=== PATIENT | female | born 1950 | race Caucasian/White ===

== ENCOUNTER → 2017-02-09 | Outpatient (CLI) | payer OTHER ==
--- NOTE | 2017-02-10 09:33 | REP ---
Clinical: Bronchiectasis. Technique: Axial noncontrast images from the thoracic inlet to the upper abdomen with coronal and sagittal re-formations. Comparison: 07/14/2013. Findings: Moderate to early-advanced diffuse bilateral bronchiectasis is appreciated along with scattered distal areas of bronchial opacity suggesting chronic aspiration and surrounding areas of tree-in-bud type infiltrates. These findings are similar to prior examination. No focal consolidation, significant mass lesion, pleural effusion/reaction or pneumothorax appreciated. No obvious adenopathy. Mediastinum demonstrates normal thoracic aorta and heart/pericardium without aortic aneurysm or cardiomegaly. No pericardial effusion. Left renal hypodensities remain stable and compatible with cysts. Impression: Moderate to early advanced chronic bronchiectasis with small scattered areas of chronic aspiration and surrounding tree-in-bud type infiltrates which remain relatively similar to prior examination. Few small scattered nodular densities on prior examination of 2013 have resolved, and no new significant consolidation, nodule or mass lesion is identified. Signed by Cecil Ramsay MD 02/10/2017 09:24 A
== END ==
LOC: M RAD 14:33
PROVIDERS: ATTEND Internal Medicine Pulmonary Disease
DX: J47.9 Bronchiectasis, uncomplicated (principal)

== ENCOUNTER → 2019-02-28 | Outpatient (CLI) | payer OTHER, MEDICAID ==
--- NOTE | 2019-03-01 06:30 | REP ---
Clinical: Renal cyst. Comparison: 02/17/2017. Technique: Real time lorenzo scale ultrasound examination using curved array transducer. Findings: Right kidney is normal in reniform shape and measures 8.9 x 4.1 x 3.0 cm in width 4 mm cortical cyst. No hydronephrosis, nephrolithiasis, further cystic or mass lesion appreciated. Left kidney is normal in reniform shape and measures 9.3 x 3.5 x 5.2 cm including complex upper pole cyst measuring 2.2 cm and peripelvic cyst measuring 1.1 cm along with smaller subcentimeter cysts. No hydronephrosis, nephrolithiasis, or mass lesion appreciated. Impression: Few cysts as noted above appear stable compared to 2017 . Electronically Signed by Cecil Ramsay MD 03/01/2019 06:22 A
== END ==
LOC: M RAD 08:20
PROVIDERS: ATTEND Nurse Practitioner Women's Health
DX: N28.1 Cyst of kidney, acquired (principal)

== ENCOUNTER → 2020-03-29 | Outpatient (CLI) | payer OTHER, MEDICAID ==
--- NOTE | 2020-03-29 14:53 | REP ---
INDICATION: RENAL CYST. COMPARISON: 02/28/2019, 02/17/2017, and 01/28/2015. FINDINGS: Multiple ultrasonographic images of the right kidney show the right kidney to measure 8.7 x 4.2 x 4.2 cm. The renal cortical echotexture is unremarkable. There are no masses. There is an unchanged 4 mm sized cyst in the inferior pole. There is good corticomedullary differentiation. There is no hydronephrosis. There are no perinephric fluid collections. Multiple ultrasonographic images of the left kidney show the left kidney to measure 9.3 x 4.1 x 4.3 cm . The renal cortical echotexture is unremarkable. There are no masses. There are unchanged cysts the largest measures 2.3 cm and the smaller of the 2 measures 1.3 cm. There is good corticomedullary differentiation. There is no hydronephrosis. There are no perinephric fluid collections. IMPRESSION: Stable exam <Electronically signed by Ector Calvillo > 03/29/20 [id number]
== END ==
LOC: M RAD 12:58
PROVIDERS: ATTEND Nurse Practitioner Women's Health
DX: N28.1 Cyst of kidney, acquired (principal)

== ENCOUNTER → 2020-12-25 | Outpatient (REF) | payer OTHER, MEDICAID ==
[2020-12-25 13:45] LABS: APPEARANCE, URINE CLOUDY (CLEAR); BACTERIA, URINE AUTO 1+ (NEGATIVE); BILIRUBIN, URINE AUTO NEGATIVE (NEGATIVE); BLOOD, URINE BLOOD 1+ (NEGATIVE); COLOR, URINE YELLOW (YELLOW); GLUCOSE, URINE (UA) AUTO NEGATIVE (NEGATIVE); KETONE, URINE AUTO NEGATIVE (NEGATIVE); LEUKOCYTE ESTERASE, URINE AUTO 3+ (NEGATIVE); MUCUS, URINE SMALL (NEGATIVE); NITRITE, URINE AUTO NEGATIVE (NEGATIVE); PROTEIN, URINE AUTO 1+ mg/dL (NEGATIVE); RBC, URINE AUTO 22 /HPF (0-3); SPECIFIC GRAVITY URINE AUTO 1.018 (1.002-1.035); SQUAMOUS EPITHELIAL CELL UR AU 0 /HPF (0-6); UROBILINOGEN, URINE AUTO 0.2 mg/dL (0.0-2.0); WBC, URINE AUTO TNTC /HPF (0-3)
== END ==
LOC: M SMT 12:59
PROVIDERS: ATTEND Nurse Practitioner Women's Health
DX: R31.0 Gross hematuria (principal)
CPT/HCPCS: 81001; 87088; 87186; G0463

== ENCOUNTER → 2021-01-06 | Outpatient (CLI) | payer OTHER, MEDICAID ==
[~2021-01-06] MED LIST: ISOVUE-370 76% 100ML VIAL As Ordered ONE
--- NOTE | 2021-01-08 04:41 | REP ---
INDICATION: GROSS HEMATURIA. COMPARISON: None TECHNIQUE: Axial precontrast, contrast-enhanced and delayed images from the lung bases to the pubic symphysis using 100 cc Isovue 370 intravenous contrast material. Coronal and sagittal reformations obtained. Post processing performed the creation of 3D CT urogram. This CT examination was performed using the following dose reduction techniques: Automated exposure control, adjustment of mA and/or kv according to the patient's size, and the use of iterative reconstruction technique. FINDINGS: Liver, spleen, pancreas, gallbladder, and bilateral adrenal glands are normal. Evaluation of the urinary tract system demonstrates relatively normal kidneys and collecting system. There is no evidence for nephroureterolithiasis, hydronephrosis or perinephric stranding. Few scattered incidental subcentimeter cysts are noted along with 2 benign cysts in the left kidney measuring 2.1 and 1.5 cm each. The enteric system including stomach, small, and large bowel appears normal. No evidence for obstruction or acute inflammatory process. Scattered diverticula noted without acute diverticulitis. Pelvis demonstrates normal bladder and evidence for prior hysterectomy. No ascites. No free air. No intraperitoneal or retroperitoneal adenopathy. Abdominal aorta and vasculature appear normal. Musculoskeletal structures are intact and without acute osseous abnormality. Lung bases demonstrate chronic bronchiectasis with presumed chronic mucous plugging to multiple bronchi in the visualized right middle lobe and lingula as well as scattered small reticulonodular/ "tree in bud" opacities scattered throughout the visualized lower lung zones which may represent chronic change versus an acute inflammatory process. IMPRESSION: 1. Few benign renal cysts as noted above. No further urinary tract pathology appreciated. 2. Predominately chronic appearing changes at the lung bases. Subtle superimposed acute process cannot be excluded and should be correlated clinically. No consolidation or effusion. 3. No further acute abdominopelvic pathology appreciated. <Electronically signed by Cecil Ramsay > 01/08/21 [id number]
== END ==
LOC: M RAD 15:07
PROVIDERS: ATTEND Nurse Practitioner Women's Health
DX: R31.0 Gross hematuria (principal)
CPT/HCPCS: 74178; Q9967

== ENCOUNTER → 2022-01-15 | Outpatient (CLI) | payer OTHER, MEDICAID | LOC: M CARPUL 14:37 | PROVIDERS: ATTEND Internal Medicine Critical Care Medicine | DX: J47.9 Bronchiectasis, uncomplicated (principal) ==

== ENCOUNTER → 2022-01-22 | Outpatient (REF) | payer OTHER, MEDICAID ==
[2022-01-22 17:53] LABS: BASO % 0.3 % (0.0-1.0); EOS # 0.2 10^3/uL (0.0-0.5); EOS % 1.8 % (0.0-3.0); HEMATOCRIT 37.5 % (36.0-47.0); HEMOGLOBIN 11.5 g/dl (12.0-15.5); LYMPH # 1.6 10^3/uL (1.5-5.0); LYMPH % 16.8 % (24.0-44.0); MEAN CORPUSCULAR HEMOGLOBIN 27.9 pg (27.0-33.0); MEAN CORPUSCULAR HGB CONC 30.7 g/dl (32.0-36.5); MONO # 0.8 10^3/uL (0.0-0.8); MONO % 8.4 % (2.0-8.0); NEUTROPHILS # 6.8 10^3/uL (1.5-8.5); NEUTROPHILS % 72.5 % (36.0-66.0); PLATELET COUNT, AUTOMATED 234 10^3/uL (150-450); RED BLOOD COUNT 4.12 10^6/uL (4.00-5.40); WHITE BLOOD COUNT 9.4 10^3/uL (4.0-10.0)
[2022-01-22 18:24] LABS: ALBUMIN 3.2 GM/DL (3.2-5.2); ALT/SGPT 13 U/L (12-78); BILIRUBIN,TOTAL 0.3 MG/DL (0.2-1.0); BLOOD UREA NITROGEN 14 MG/DL (7-18); CALCIUM LEVEL 8.9 MG/DL (8.8-10.2); CARBON DIOXIDE LEVEL 29 MEQ/L (21-32); CHLORIDE LEVEL 103 MEQ/L (98-107); CREATININE FOR GFR 0.74 MG/DL (0.55-1.30); GLOMERULAR FILTRATION RATE > 60.0 (>45); GLUCOSE, FASTING 97 MG/DL (70-100); POTASSIUM SERUM 4.8 MEQ/L (3.5-5.1); RHEUMATOID FACTOR QUANT < 10.0 IU/ML (<15.0); SODIUM LEVEL 138 MEQ/L (136-145); TOTAL PROTEIN 7.1 GM/DL (6.4-8.2); URIC ACID 3.1 MG/DL (2.6-6.0)
[2022-01-22 18:28] LABS: ERYTHROCYTE SEDIMENTATION RATE 75 mm/hr (0-30)
[2022-01-27 00:07] LABS: ANA (HEP2) Negative (.); CYCLIC CITRULLINATED PEPTIDE 9 units (0-19)
== END ==
LOC: M LAB REF 17:19
PROVIDERS: ATTEND Internal Medicine Critical Care Medicine
DX: L94.8 Other specified localized connective tissue disorders (principal); Z79.899 Other long term (current) drug therapy

== ENCOUNTER → 2022-09-08 | Outpatient (REF) | payer OTHER ==
[2022-09-08 16:55] LABS: APPEARANCE, URINE CLEAR (CLEAR); BACTERIA, URINE AUTO NEGATIVE (NEGATIVE); BILIRUBIN, URINE AUTO NEGATIVE (NEGATIVE); BLOOD, URINE BLOOD NEGATIVE (NEGATIVE); COLOR, URINE YELLOW (YELLOW); GLUCOSE, URINE (UA) AUTO NEGATIVE (NEGATIVE); KETONE, URINE AUTO NEGATIVE (NEGATIVE); LEUKOCYTE ESTERASE, URINE AUTO NEGATIVE (NEGATIVE); MUCUS, URINE SMALL (NEGATIVE); NITRITE, URINE AUTO NEGATIVE (NEGATIVE); PROTEIN, URINE AUTO NEGATIVE (NEGATIVE); RBC, URINE AUTO 0 /HPF (0-3); SPECIFIC GRAVITY URINE AUTO 1.013 (1.002-1.035); SQUAMOUS EPITHELIAL CELL UR AU 0 /HPF (0-6); UROBILINOGEN, URINE AUTO 0.2 mg/dL (0.0-2.0); WBC, URINE AUTO 0 /HPF (0-3)
[2022-09-08 17:02] LABS: BASO # 0.1 10^3/uL (0.0-0.2); BASO % 0.4 % (0.0-1.0); EOS # 0.3 10^3/uL (0.0-0.5); EOS % 2.2 % (0.0-3.0); HEMATOCRIT 42.1 % (36.0-47.0); HEMOGLOBIN 12.7 g/dl (12.0-15.5); LYMPH # 1.7 10^3/uL (1.5-5.0); LYMPH % 12.7 % (24.0-44.0); MEAN CORPUSCULAR HEMOGLOBIN 26.8 pg (27.0-33.0); MEAN CORPUSCULAR HGB CONC 30.2 g/dl (32.0-36.5); MONO # 0.8 10^3/uL (0.0-0.8); MONO % 5.8 % (2.0-8.0); NEUTROPHILS # 10.4 10^3/uL (1.5-8.5); NEUTROPHILS % 78.6 % (36.0-66.0); PLATELET COUNT, AUTOMATED 365 10^3/uL (150-450); RED BLOOD COUNT 4.73 10^6/uL (4.00-5.40); WHITE BLOOD COUNT 13.2 10^3/uL (4.0-10.0)
[2022-09-08 17:15] LABS: ERYTHROCYTE SEDIMENTATION RATE 89 mm/hr (0-30)
[2022-09-08 17:30] LABS: COMPLEMENT C3 157.9 MG/DL (90.0-170.0)
[2022-09-08 17:31] LABS: ALBUMIN 3.9 G/DL (3.2-5.2); ALKALINE PHOSPHATASE 166 U/L (46-116); ALT/SGPT 14 U/L (7.0-40); AST/SGOT 16 U/L (<34); BILIRUBIN,TOTAL 0.2 MG/DL (0.3-1.2); BLOOD UREA NITROGEN 12 MG/DL (9-23); CALCIUM LEVEL 9.8 MG/DL (8.3-10.6); CARBON DIOXIDE LEVEL 29 MMOL/L (20-31); CHLORIDE LEVEL 100 MMOL/L (98-107); COMPLEMENT C4 41.8 MG/DL (12-36); CREATININE FOR GFR 0.79 MG/DL (0.55-1.30); GLOMERULAR FILTRATION RATE > 60.0 (>39); GLUCOSE, FASTING 82 MG/DL (74-106); POTASSIUM SERUM 4.2 MMOL/L (3.5-5.1); SODIUM LEVEL 137 MMOL/L (136-145); TOTAL PROTEIN 8.1 G/DL (5.7-8.2)
[2022-09-08 17:33] LABS: CREATININE,RANDOM URINE 82.7 MG/DL
[2022-09-08 17:37] LABS: TOTAL PROTEIN,RANDOM URINE < 6.0 MG/DL (0.0-14.0)
== END ==
LOC: M SFHCRHEU 12:54
PROVIDERS: ATTEND Internal Medicine Rheumatology
DX: J47.9 Bronchiectasis, uncomplicated (principal); R76.8 Other specified abnormal immunological findings in serum

== ENCOUNTER → 2022-10-13 | Outpatient (CLI) | payer OTHER, MEDICAID | LOC: M WHC 12:15 | PROVIDERS: ATTEND Physician Assistant Medical | DX: Z12.31 Encounter for screening mammogram for malignant neoplasm of breast (principal); N95.9 Unspecified menopausal and perimenopausal disorder ==

== ENCOUNTER 2022-12-21 21:20 | Emergency (ER) | payer OTHER, MEDICAID ==
[~2022-12-21] VITALS: Ht 160 cm; Wt 46.9 kg
[2022-12-21] MEDS ORDERED: ASPIRIN 81MG CHEW TABLET PO ONE (22:05)
[2022-12-21 22:24] LABS: BASO # 0.1 10^3/uL (0.0-0.2); BASO % 0.4 % (0.0-1.0); EOS # 0.3 10^3/uL (0.0-0.5); EOS % 2.1 % (0.0-3.0); HEMATOCRIT 38.2 % (36.0-47.0); HEMOGLOBIN 12.1 g/dl (12.0-15.5); LYMPH # 1.7 10^3/uL (1.5-5.0); LYMPH % 12.1 % (24.0-44.0); MEAN CORPUSCULAR HEMOGLOBIN 27.2 pg (27.0-33.0); MEAN CORPUSCULAR HGB CONC 31.7 g/dl (32.0-36.5); MEAN CORPUSCULAR VOLUME 85.8 fl (80.0-96.0); MONO # 0.9 10^3/uL (0.0-0.8); MONO % 6.8 % (2.0-8.0); NEUTROPHILS # 10.7 10^3/uL (1.5-8.5); NEUTROPHILS % 78.4 % (36.0-66.0); PLATELET COUNT, AUTOMATED 314 10^3/uL (150-450); RED BLOOD COUNT 4.45 10^6/uL (4.00-5.40); WHITE BLOOD COUNT 13.6 10^3/uL (4.0-10.0)
[2022-12-21 22:37] LABS: INR 1.04; PROTHROMBIN TIME 13.3 SECONDS (12.5-14.5)
[2022-12-21 22:49] LABS: ALBUMIN 3.7 G/DL (3.2-5.2); ALKALINE PHOSPHATASE 175 U/L (46-116); ALT/SGPT 17 U/L (7.0-40); AST/SGOT 12 U/L (<34); BILIRUBIN,DIRECT < 0.1 MG/DL (<0.4); BILIRUBIN,TOTAL 0.2 MG/DL (0.3-1.2); BLOOD UREA NITROGEN 15 MG/DL (9-23); CALCIUM LEVEL 9.1 MG/DL (8.3-10.6); CARBON DIOXIDE LEVEL 28 MMOL/L (20-31); CHLORIDE LEVEL 102 MMOL/L (98-107); CK-MB VALUE MASS < 1.0 NG/ML (<3.6); CREATININE FOR GFR 0.68 MG/DL (0.55-1.30); GLOMERULAR FILTRATION RATE > 60.0 (>39); GLUCOSE, FASTING 130 MG/DL (74-106); POTASSIUM SERUM 3.8 MMOL/L (3.5-5.1); SODIUM LEVEL 136 MMOL/L (136-145); TOTAL PROTEIN 7.9 G/DL (5.7-8.2)
[2022-12-21 22:52] LABS: CPK CREATINE PHOSPHOKINASE 48 U/L (34-145); MB/CK RELATIVE INDEX 2.08 (< OR =4)
[2022-12-21 23:38] LABS: CK-MB VALUE MASS < 1.0 NG/ML (<3.6)
[2022-12-21 23:39] LABS: CPK CREATINE PHOSPHOKINASE 41 U/L (34-145); MB/CK RELATIVE INDEX 2.43 (< OR =4)
[2022-12-21] MEDS ORDERED: ZITHTAB PO (23:47)
[2022-12-21] MEDS ORDERED: CEFD300C PO (23:47)
[2022-12-22 00:02] VITALS: BP 148/55; TEMP 98.4; O2SAT 98
== END 2022-12-22 00:03 | disposition home or self-care (01) ==
LOC: M ED 21:20
DX: R07.9 Chest pain, unspecified (principal); J06.9 Acute upper respiratory infection, unspecified; R00.1 Bradycardia, unspecified; Z88.0 Allergy status to penicillin; Z88.2 Allergy status to sulfonamides; Z91.048 Other nonmedicinal substance allergy status; Z79.2 Long term (current) use of antibiotics

== ENCOUNTER → 2023-10-22 | Outpatient (CLI) | payer OTHER ==
[~2023-10-22] MED LIST changes: +CEFD300C PO; -ISOVUE-370 76% 100ML VIAL As Ordered ONE; +ZITHTAB PO
== END ==
LOC: M WHC 10:56
PROVIDERS: ATTEND Internal Medicine Medical Oncology
DX: Z12.31 Encounter for screening mammogram for malignant neoplasm of breast (principal)

== ENCOUNTER → 2024-12-19 | Outpatient (CLI) | payer MEDICARE | LOC: M RAD 10:09 | PROVIDERS: ATTEND Nurse Practitioner | DX: R10.9 Unspecified abdominal pain (principal) ==